=== PATIENT | male | born 1950 | race Caucasian/White ===

== ENCOUNTER → 2019-04-11 | Outpatient (CLI) | payer MEDICARE, OTHER ==
[~2019-04-11] MED LIST: ASPI81TA50 PO; CITA40TA5 PO; CRESTOR10 MG PO; DICL75TA PO; FISH1CAP PO; LISI-334 PO; METO25TA4 PO
--- NOTE | 2019-04-11 16:18 | RAD ---
EXAM: Lower extremity arterial Doppler sonogram with ankle-brachial indices (MARIO). HISTORY: Nonhealing wound. TECHNIQUE: Doppler sonographic evaluation of the lower extremities was performed and pressure readings were assessed. FINDINGS: There is atherosclerotic plaque throughout the left lower extremity arteries. There are triphasic waveforms within the left common femoral, superficial femoral and popliteal arteries and biphasic waveforms within the left deep femoral and dorsalis pedis arteries. There are abnormal monophasic waveforms within the posterior tibial artery and the peroneal artery is not seen. There are elevated peak systolic velocities within the common femoral artery and proximal superficial femoral artery, measuring 168 cm/s and 171 cm/s, respectively. Right brachial pressure: 130 mmHg Left brachial pressure: 131 mmHg Left ankle pressure (posterior tibial artery): 132 mmHg Left ankle pressure (dorsalis pedis artery): 129 mmHg Left MARIO: 1.0 IMPRESSION: 1. Nonvisualization of the left peroneal artery. This may be due to technique or occlusion. There are abnormal monophasic waveforms within the posterior tibial artery suggesting hemodynamically significant proximal stenosis. 2. Elevated peak systolic velocities within the common femoral and proximal superficial femoral artery, suggesting hemodynamically significant stenosis. 3. Atherosclerotic plaque throughout the left lower extremity arteries. 4. Normal left ankle-brachial index. Electronically signed by: Colleen Mulligan MD (04/11/2019 4:15 PM) [place] [id number]
--- NOTE | 2019-04-11 16:22 | RAD ---
EXAM: Left tibia and fibula, 2 views. HISTORY: Nonhealing ulcer. COMPARISON: None. FINDINGS: 2 views of the tibia and fibula are obtained. There is no fracture, dislocation or subluxation. There is no periosteal reaction or suspicious lytic or sclerotic osseous lesion. There is a soft tissue bandage overlying the anterior gonzales at the site of reported ulceration. There are vascular calcifications. IMPRESSION: No acute osseous finding. Electronically signed by: Colleen Mulligan MD (04/11/2019 4:19 PM) [place] [id number]
== END | disposition home or self-care (01) ==
LOC: US 14:39
PROVIDERS: ATTEND Emergency Medicine Undersea and Hyperbaric Medicine
DX: I70.248 Atherosclerosis of native arteries of left leg with ulceration of other part of lower leg (principal); L97.829 Non-pressure chronic ulcer of other part of left lower leg with unspecified severity
CPT/HCPCS: 73590; 93922; 93926

== ENCOUNTER 2019-04-21 07:59 | Outpatient (CLI) | payer MEDICARE, OTHER ==
[~2019-04-21] VITALS: Ht 190.5 cm; Wt 93.4 kg
[2019-04-21] VITALS (9 sets, daily range): BP systolic 138–161; BP diastolic 70–89
[2019-04-21] MEDS ORDERED: FISH1CAP PO (08:51)
[2019-04-21] MEDS ORDERED: HEPARIN for ARTERIAL LINE 1,500 ML ONE (08:51)
[2019-04-21] MEDS ORDERED: IODIXANOL 320 MG/ML 100 ML VIAL. ONE (08:51)
[2019-04-21] MEDS ORDERED: LIDOCAINE WITH 8.4% SOD BICARB 3 ML DISP.SYRIN. ONE (08:51)
[2019-04-21] MEDS ORDERED: DICL75TA PO (08:51)
[2019-04-21] MEDS ORDERED: CRESTOR10 MG PO (08:53)
[2019-04-21] MEDS ORDERED: METO25TA4 PO (08:53)
[2019-04-21] MEDS ORDERED: CITA40TA5 PO (08:53)
[2019-04-21] MEDS ORDERED: LISI-334 PO (08:53)
[2019-04-21] MEDS ORDERED: ASPI81TA50 PO (08:53)
[2019-04-21 08:56] LABS: BASO # 0.1 x10^3/uL (0.0-0.2); BASO % 1 % (0-3); EOS # 0.2 x10^3/uL (0.0-0.7); EOS % 3 % (0-3); HEMATOCRIT 38.3 % (39.0-53.0); HEMOGLOBIN 13.4 g/dL (13.0-17.5); LYMPH # 1.7 x10^3/uL (1.0-4.8); LYMPH % 28 % (24-48); MEAN CORPUSCULAR HEMOGLOBIN 36 pg (25-35); MEAN CORPUSCULAR HGB CONC 35 g/dL (31-37); MEAN CORPUSCULAR VOLUME 102 fL (79-100); MONO # 0.6 x10^3/uL (0.0-1.1); MONO % 9 % (0-9); NEUT # 3.5 x10^3/uL (1.8-7.7); NEUT % 58 % (31-73); PLATELET COUNT 155 x10^3/uL (140-400); RED BLOOD COUNT 3.75 x10^6/uL (4.30-5.70); RED CELL DISTRIBUTION WIDTH 13.4 % (11.5-14.5)
[2019-04-21 09:04] LABS: PROTHROMBIN TIME PATIENT 12.2 SEC (11.7-14.0)
[2019-04-21 09:05] LABS: CALCIUM 8.9 mg/dL (8.5-10.1); GFR 74.8; POTASSIUM 4.9 mmol/L (3.5-5.1)
[2019-04-21] MEDS ORDERED: MIDAZOLAM HCL/PF 5 MG/5 ML VIAL. ONE (09:22)
[2019-04-21] MEDS ORDERED: fentaNYL PF VIAL 100 MCG/2 ML VIAL ONE ×2 (09:23→10:36)
[2019-04-21] MEDS ORDERED: HEPARIN for IV BOLUS 10,000 UNIT/10 ML VIAL. ONE (09:23)
[2019-04-21] MEDS ORDERED: CONTRAST GIVEN. MC PRN (10:15)
[2019-04-21] MEDS ORDERED: MIDAZOLAM HCL/PF 5 MG/5 ML VIAL. IV ONE (10:15)
[2019-04-21] MEDS ORDERED: fentaNYL PF VIAL 100 MCG/2 ML VIAL IV ONE (10:15)
[2019-04-21] MEDS ORDERED: IODIXANOL 320 MG/ML 100 ML VIAL. IART ONE (10:15)
[2019-04-21] MEDS ORDERED: LIDOCAINE WITH 8.4% SOD BICARB 3 ML DISP.SYRIN. IJ ONE (10:15)
[2019-04-21] MEDS ORDERED: NITROGLYCERIN 200 MCG/2 ML SYRINGE FOR CATH/VASC LAB. IART ONE (10:45)
[2019-04-21] MEDS ORDERED: HEPARIN for IV BOLUS 10,000 UNIT/10 ML VIAL. IV ONE (10:45)
[2019-04-21] MEDS ORDERED: NITROGLYCERIN 200 MCG/2 ML SYRINGE FOR CATH/VASC LAB. ONE (14:20)
--- NOTE | 2019-04-21 15:50 | NUR ---
Discharge Note: KEZIA VILLEDA Discharge instructions and discharge home medications reviewed with Patient and a copy given. All questions have been answered and understanding verbalized. The following instructions and handouts were given: medication list, post mod sedation education, incision care instructions, post arteriogram instructions Discontinued lines and drains: dressing applied with pressure dressing intact. Patient discharged to home with brother via wheelchair
--- NOTE | 2019-04-24 08:17 | RAD ---
04/24/2019 6:10 AM Procedure: 1. Abdominal aortogram 2. Pelvic angiography 3. Left lower extremity angiography 4. Angioplasty of the anterior tibial artery Clinical Indication: LEFT LEG WOUND Discussion: The procedure was explained in its entirety to the patient or the patients designated patient access representative by a member of the treatment team, including a discussion of the risks, benefits and commonly accepted alternatives to the procedure, as well as the expected consequences of no therapy whatsoever. Discussion of the risks included, but was not limited to, those that are most frequent and those that are rare but possibly severe or life-threatening, as well as the possibility of unforeseen complications. All elements of maximal sterile barrier technique including the use of a cap, mask, sterile gown, sterile gloves, large sterile sheet, appropriate hand hygiene, and 2% chlorhexidine for cutaneous antisepsis (or acceptable alternative antiseptic per current guidelines) were followed for this procedure. The right groin was prepped and draped as described above. The right common femoral artery was found to be patent by ultrasound. Right common femoral artery was accessed under direct ultrasound guidance using micropuncture technique. A 5 Prydeinig vascular sheath was placed. Abdominal aortogram was performed. Pelvic angiography was performed. The catheter was repositioned in the left common femoral artery. Left lower extremity angiography was performed. There is significant diffuse atherosclerotic vascular disease. There is however no aortoiliac or significant femoropopliteal stenosis on the left. There is occlusion of the distal anterior tibial artery. The artery is overall small in caliber. With more dominant flow through the peroneal and posterior tibial artery. Given anterior gonzales wound, revascularization may benefit patient. A guidewire Wire was advanced into the distal dorsalis pedis artery. Balloon angioplasty of the anterior tibial artery was performed with a 2 mm balloon. This reestablished in-line flow to the dorsalis pedis artery. Artery remains small, but hopefully in-line flow will improve chances of wound healing. Sheath was removed. Mixed device was deployed to achieve hemostasis. Sterile dressings were applied. Dose area product: 381 Gycm2 Total fluoroscopy time 24.8 Minutes The procedures performed under conscious sedation including continuous cardiopulmonary monitoring via dedicated sedation nurse. Kiwn-mn-rggq sedation time: 130 minutes Impression: 1. Diffuse atherosclerotic vascular disease without hemodynamically significant aortoiliac or femoral peroneal stenosis 2. Two-vessel runoff to left foot via the posterior tibial and peroneal artery 3. 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
== END 2019-04-21 15:52 | disposition home or self-care (01) ==
LOC: INTRAD 07:59
PROVIDERS: ATTEND Emergency Medicine Undersea and Hyperbaric Medicine
DX: I70.92 Chronic total occlusion of artery of the extremities (principal); I70.202 Unspecified atherosclerosis of native arteries of extremities, left leg; I87.012 Postthrombotic syndrome with ulcer of left lower extremity; L97.223 Non-pressure chronic ulcer of left calf with necrosis of muscle
CPT/HCPCS: 36415; 37228; 75625; 75710; 76937; 80048; 85025; 85610; 99152; 99153; C1713; C1725; C1760; C1769; C1892; C1894; J1644; J2250; J3010; J3490; Q9967; G0269

== ENCOUNTER → 2019-05-30 | Outpatient (CLI) | payer MEDICARE, OTHER ==
[2019-04-21 14:05] VITALS: BP 150/70
--- NOTE | 2019-05-30 16:01 | RAD ---
EXAM: Left lower extremity venous reflux sonographic. HISTORY: Nonhealing wound. TECHNIQUE: Sonographic imaging of the left lower extremity veins was performed. COMPARISON: None. FINDINGS: There is no evidence of venous reflux within the left lower extremity. There is a catheter ditching machine operating engineer measuring 13 cm up and 5 cm back. The greater saphenous vein measures 8 mm within the proximal thigh, 4 mm within the distal thigh, 2 mm within the proximal calf, 3 mm within the mid calf and 3 mm within the distal calf. IMPRESSION: 1. No sonographic evidence of left lower extremity venous reflux. 2. Left calf ditching machine operating engineer vein. Electronically signed by: Colleen Mulligan MD (05/30/2019 3:58 PM) [facility]
== END | disposition home or self-care (01) ==
LOC: US 15:15
PROVIDERS: ATTEND Emergency Medicine Undersea and Hyperbaric Medicine
DX: L97.829 Non-pressure chronic ulcer of other part of left lower leg with unspecified severity (principal)
CPT/HCPCS: 93971

== ENCOUNTER → 2020-11-26 | Outpatient (CLI) | payer MEDICARE, OTHER ==
[2019-04-21 14:05] VITALS: BP 150/70
[~2020-11-26] MED LIST changes: +IOHEXOL 350 MG/ML 100 ML VIAL. IV ONE; -LISI-334 PO; +LISI20TA18 PO
[2020-11-26 13:22] LABS: CREATININE 1.1 mg/dL (0.7-1.3); GFR 66.6
--- NOTE | 2020-11-26 15:48 | RAD ---
EXAM: Abdomen and pelvis and bilateral lower extremity CT angiogram with intravenous contrast. HISTORY: Nonhealing left lower extremity venous ulcer. TECHNIQUE: Computed tomographic images of the abdomen and pelvis and lower extremities were obtained following the administration of intravenous contrast. Multiplanar reformatting was performed. *One or more of the following individualized dose reduction techniques were utilized for this examina tion: 1. Automated exposure control. 2. Adjustment of the mA and/or kV according to patient size. 3. Use of iterative reconstruction technique. COMPARISON: None. FINDINGS: Evaluation of the lower thorax demonstrates bilateral basilar atelectasis. There is no infi ltrate or pleural effusion. The heart is normal in size. There is calcified atherosclerotic plaque in volving the coronary arteries. No suspicious hepatic lesion is seen. The gallbladder, pancreas, splee n and adrenal glands are unremarkable. There are simple appearing left greater than right renal cysts , the largest of which measures 3.4 cm on the left. No solid renal lesion is seen. There is no hydron ephrosis. There is no appendicitis. There is no bowel obstruction. There is colonic diverticulosis. T here is slight wall thickening and minimal surrounding fatty stranding surrounding the distal colon l ikely due to the sequela of prior inflammation. There is no convincing acute diverticulitis. The blad inga is unremarkable. There are small fat-containing inguinal hernias. There are nonspecific retroperi toneal lymph nodes. These are likely physiologic. There are degenerative changes throughout the visua lized spine. There is grade 1 anterolisthesis with pars defects at L5-S1. There is avascular necrosis involving the bilateral superior femoral heads. There is complete loss of the right hip joint space with associated bony remodeling and cortical collapse involving the superior acetabulum and superior femoral head. There is superimposed bone demineralization and a right hip effusion. There is calcified atherosclerotic plaque involving the aorta and main aortic branch vessels. No aort ic aneurysm or dissection is seen. There is less than 50 percent stenosis involving the celiac axis a nd proximal right superior mesenteric artery. There is approximately 50 percent stenosis involving th e mid right superior mesenteric artery. There is less than 50 percent stenosis involving the origins of the renal arteries. The inferior mesenteric artery is patent. There is calcified atherosclerotic plaque involving the iliac bifurcation. This results in 50-69 perc ent stenosis involving the right greater than left external iliac arteries, near complete occlusion o f the origins of the internal iliac arteries and segments of greater than 70 percent stenosis involvi ng the mid and distal internal iliac arteries. There is dfrd-cf-ulopczei calcified atherosclerotic plaque involving the right common femoral and radha p femoral artery, with less than 50 percent stenosis. There is moderate atherosclerotic plaque involv ing the right superficial femoral artery, resulting in segments of 50-69 percent stenosis. There is s imilar-appearing atherosclerotic plaque involving the right popliteal artery with less than 50 percen t stenosis. There is severe atherosclerotic plaque involving the right anterior and posterior tibial and peroneal arteries. The right posterior tibial artery remains patent to the level of the forefoot. The right anterior tibial artery appears partially occluded within its proximal and mid aspects an o ccluded in its distal aspect. The peroneal artery terminates slightly proximal to the ankle. There is dbgk-oy-tbchtyaj calcified atherosclerotic plaque involving the left common femoral and deep femoral arteries with less than 50 percent stenosis. There is a similar-appearing moderate atheroscl erotic plaque involving the left superficial femoral artery the popliteal artery, with less than 20 p ercent stenosis. There is severe partially calcified atherosclerotic plaque involving the anterior an d posterior tibial and peroneal arteries. The left posterior tibial artery remains patent to the leve l of the forefoot. The left anterior tibial artery is nearly completely occluded, but remains patent to the level of the dorsalis pedis artery. The left peroneal artery terminates slightly proximal to t he ankle. IMPRESSION: 1. Mild to moderate atherosclerotic plaque involving the bilateral common femoral and deep femoral ar teries with less than 50 percent stenosis. There are similar-appearing tfrr-ps-gulpvnrm atherosclerot ic plaque involving the left superficial femoral and bilateral popliteal arteries with less than 50 p ercent stenosis and moderate atherosclerotic plaque involving the right superficial femoral artery re sulting in 50-69 percent stenosis. 2. Severe atherosclerotic plaque involving the bilateral anterior and posterior tibial arteries and p eroneal arteries. The bilateral posterior tibial arteries remain patent to the level of the forefeet, the peroneal arteries terminate solid proximal to the ankles, the right anterior tibial artery appea rs occluded distally and the left anterior tibial artery is partially occluded within its mid aspect but remains patent to the level of the dorsalis pedis artery. 3. Mild atherosclerotic plaque involving the aorta and abdominal aortic branch vessels, resulting in approximately 50 percent stenosis within the mid superior mesenteric artery and less than 50 percent stenosis involving the celiac axis and renal arteries. There is also atherosclerosis involving the il iac bifurcation resulting in approximately 50-79 percent stenosis of the right greater than left exte rnal iliac arteries and near complete occlusion at the origins of the internal iliac arteries. 4. Colonic diverticulosis. There is slight wall thickening and surrounding stranding involving the di stal colon which is likely due to the sequela of prior inflammation. There is no convincing acute col itis or diverticulitis. 5. Grade 1 anterolisthesis with pars defects at L5-S1. 6. 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 7. Simple appearing renal cysts. Follow-up is not routinely performed for simple cysts. Electronically signed by: Colleen Mulligan MD (11/26/2020 3:46 PM) [id number]
== END ==
LOC: CT 12:57
PROVIDERS: ATTEND Nurse Practitioner Family
DX: L97.929 Non-pressure chronic ulcer of unspecified part of left lower leg with unspecified severity (principal); I70.201 Unspecified atherosclerosis of native arteries of extremities, right leg; K57.30 Diverticulosis of large intestine without perforation or abscess without bleeding; M43.17 Spondylolisthesis, lumbosacral region
CPT/HCPCS: 36415; 75635; 82565; Q9967

== ENCOUNTER → 2021-02-13 | Outpatient (CLI) | payer MEDICARE, OTHER ==
[2019-04-21 14:05] VITALS: BP 150/70
[~2021-02-13] MED LIST changes: -IOHEXOL 350 MG/ML 100 ML VIAL. IV ONE; +REGADENOSON 0.4 MG/5 ML DISP.SYRIN. IV ONE
--- NOTE | 2021-02-13 18:32 | CARD ---
MR#: [id number] Date of Study: 02/13/2021 Ordering Physician: MARIANGEL BOWEN, Referring Physician: MARIANGEL BOWEN, Tech: Petrona Henderson, [facility] [place] APPROVED REPORT EXAM: Two-dimensional and M-mode echocardiogram with Doppler and color Doppler. Other Information Quality : AverageHR: 85bpm INDICATION Cardiac Disease: CAD 2D DIMENSIONS RVDd3.3 (2.9-3.5cm)Left Atrium(2D)3.2 (1.6-4.0cm) IVSd1.1 (0.7-1.1cm)Aortic Root(2D)3.5 (2.0-3.7cm) LVDd5.2 (3.9-5.9cm)LVOT Diameter2.1 (1.8-2.4cm) PWd1.1 (0.7-1.1cm)LVDs3.3 (2.5-4.0cm) FS (%) 36.6 %SV84.4 ml Aortic Valve AoV Peak Gunner.174.4cm/sAoV VTI33.1cm AO Peak GR.12.2mmHgLVOT Peak Gunner.144.2cm/s LVOT VTI 28.52cmAO Mean GR.7mmHg HANNAH (VMAX)2.42zx1QXC (VTI)3.09cm2 Mitral Valve MV E Gsubnjea24.6cm/sMV DECEL TQCL728lw MV A Tpceqvhk79.1cm/sMV E Mean Gr.2mmHg MV YRZ87dtL/A Ratio1.0 MVA (PHT)3.17cm2 TDI E/Medial E'7.8 Pulmonary Valve PV Peak Fcjcnnnr13.3cm/sPV Peak Grad.4mmHg Tricuspid Valve TR P. Fhcbvdcb132ai/sTR Peak Gr.17mmHg Pulmonary Vein S1 Jgwkxstz04.8cm/sD2 Tmdlsdak53.5cm/s PVa gwkvnzvh298ppay LEFT VENTRICLE The left ventricle is normal size. There is mild concentric left ventricular hypertrophy. The left ve ntricular systolic function is normal and the ejection fraction is within normal range. The Ejection Fraction is 60-65%. There is normal LV segmental wall motion. Transmitral Doppler flow pattern is Gra de II-pseudonormal filling dynamics. RIGHT VENTRICLE The right ventricle is mildly dilated. There is normal right ventricular wall thickness. The right ve ntricular systolic function is normal. ATRIA The left atrium size is normal. The right atrium size is normal. The interatrial septum is intact wit h no evidence for an atrial septal defect or patent foramen ovale as noted on 2-D or Doppler imaging. AORTIC VALVE The aortic valve is thickened but opens well. Doppler and Color Flow revealed no significant aortic r egurgitation. There is no significant aortic valvular stenosis. Calculated aortic valve area is 3.26 cm2 with maximum pressure gradient of 14 mmHg and mean pressure gradient of 8 mmHg. MITRAL VALVE The mitral valve is normal in structure and function. There is no evidence of mitral valve prolapse. There is no mitral valve stenosis. Doppler and Color-flow revealed trace mitral regurgitation. TRICUSPID VALVE The tricuspid valve is normal in structure and function. Doppler and Color Flow revealed trace tricus pid regurgitation with an estimated PAP of 19 mmHg. There is no tricuspid valve stenosis. PULMONIC VALVE The pulmonic valve is not well visualized. Doppler and Color Flow revealed trace pulmonic valvular re gurgitation. GREAT VESSELS The aortic root is normal in size. The IVC is normal in size and collapses >50% with inspiration. PERICARDIAL EFFUSION There is no evidence of significant pericardial effusion. Critical Notification Critical Value: No <Conclusion> The left ventricle is normal size. The left ventricular systolic function is normal and the ejection fraction is within normal range. The Ejection Fraction is 60-65%. There is normal LV segmental wall motion. There is mild concentric left ventricular hypertrophy. Doppler and Color Flow revealed no significant aortic regurgitation. There is no significant aortic valvular stenosis. Doppler and Color-flow revealed trace mitral regurgitation. Doppler and Color Flow revealed trace tricuspid regurgitation with an estimated PAP of 19 mmHg. Signed by : Yariel Vann MD Electronically Approved : 02/13/2021 18:31:37
--- NOTE | 2021-02-13 19:00 | RAD ---
MR#: [id number] Date of Study: 02/13/2021 Ordering Physician: MARIANGEL BOWEN, Referring Physician: DENISE MARCUS Tech: Minh Sullivan, RT (R) (N)JOE Sandoval APPROVED REPORT Test Type: Pharmacological Stress Nurse/Tech: Santiago Wiley RN Test Indications: CAD Cardiac History: CAD, Cardiac Cath w/ 5 stents placed in 2014, HTN, See EMR. Medications: ASA, See EMR. Medical History: Current Smoker, COPD,See EMR. Resting ECG: SR Resting Heart Rate: 74 bpm Resting Blood Pressure: 143/72mmHg Pretest Chest Pain: No chest pain Nurse/Tech Notes Lungs wheezy and diminshed through out, Heart tones regular. Pt sating 91% on RA prior to test; durin g stress O2 sat dropped to 89% on RA. Pt was recovered to 91% by the end of stress. Consent: The procedure was explained to the patient in lay terms. Informed consent was witnessed. Jonel eout was entered into [employer]. History and Stress Test performed by JOE Sandoval Pharm. Details Pharmacologic stress testing was performed using 0.4mg per 5ml of regadenoson given intravenously ove r 7-10 seconds. Stress Symptoms Dyspnea POST EXERCISE Reason for Termination: Infusion complete Max HR: 86 bpm Max Blood Pressure: 159/60mmHg Blood Pressure response to exercise: Normal blood pressure response during stress. Heart Rate response to exercise: WNL Chest Pain: No. Arrhythmia: No. ST Change: No. INTERPRETATION Stress EKG Conclusion: The resting EKG shows a sinus rhythm with minimal nonspecific ST-T wave change s. The stress EKG showed no significant changes from baseline. No EKG evidence of stress-induced ischemia. Imaging Protocol IMAGE PROTOCOL: Rest Tc-99m/stress Tc-99m 1 day Rest: Stress: Viability: Radiopharm.Tc99m UqcyeubjxDh32h Sestamibi Dose10.5mCi 33mCi Duration 15min. 10min. Img Date 02/13/2021 02/13/2021 Inj-Img Iick83fhi. 60min. Rest Admin Site:IV - Right AntecubitalAdministrator:Minh Sullivan, RT (R)(N) Stress Admin Site: IV - Right AntecubitalAdministrator: JOE Sandoval STRESS DATA End Diast. Vol.103.0mlAv. Heart Rate89.0bpm End Syst. Vol.23.0mlCO Index BSA0.0L/min Myocardial Kuuv119.0gEject. Ixsplnhr41.0% Stress Rates Pk. Fill Rate3.80EDV/secLVtime Pk. Fill 190.99msec Pk. Empty Rate6.01ESV/secLVtime Pk. Mejwx673.49msec 07/14 Pk. Fill1.54EDV/sec Stress Scores Regional WT0.00Summed WT0.00 Regional WM0.00Summed WM0.00 LV Perfusion The stress scans show an inferior defect. The rest scans show a more prominent inferior defect. Nuclear imaging shows a fixed inferior wall defect. There is no reversible ischemia present. This is consistent with a prior inferior infarct or possible attenuation defect. Wall Motion Left ventricular systolic function is normal with no regional wall motion abnormalities and an ejecti on fraction of greater than 70%. LV Perf. Quant 17 Seg. SSS10.00 17 Seg. SRS18.00 17 Seg. SDS1.00 Stress Defect Extent (% LAD)0.00Rest Defect Extent (% LAD)18.80Rev. Defect Extent (% LAD)0.00 Stress Defect Extent (% LCX) 26.30Rest Defect Extent (% LCX)51.30Rev. Defect Extent (% LCX)0.00 Stress Defect Extent (% RCA)46.70Rest Defect Extent (% RCA)55.60Rev. Defect Extent (% RCA)0.00 Stress Defect Extent (% RICHMOND)18.50Rest Defect Extent (% RICHMOND)38.00Rev. Defect Extent (% RICHMOND)0.00 Conclusion 1. No EKG evidence of stress-induced ischemia. 2. Nuclear imaging shows no reversible ischemia. 3. Left ventricular systolic function is normal with no clear regional wall motion abnormalities and an ejection fraction of greater than 70%. 4. Fixed inferior wall defect with normal LV function most consistent with a probable attenuation def ect although an inferior infarct cannot be entirely excluded. 5. Moderately low risk nuclear stress test. Signed by : Yariel Vann MD Electronically Approved : 02/13/2021 19:00:21
== END ==
LOC: NM 09:56
PROVIDERS: ATTEND Internal Medicine Cardiovascular Disease
DX: I25.10 Atherosclerotic heart disease of native coronary artery without angina pectoris (principal); I51.7 Cardiomegaly; R06.00 Dyspnea, unspecified; I10 Essential (primary) hypertension; F17.200 Nicotine dependence, unspecified, uncomplicated; J44.9 Chronic obstructive pulmonary disease, unspecified; Z95.818 Presence of other cardiac implants and grafts
CPT/HCPCS: 78452; 93017; 93306; 93970; A9500; J2785

== ENCOUNTER → 2021-03-10 | Outpatient (CLI) | payer MEDICARE, OTHER ==
[2021-03-10] VITALS (21 sets, daily range): BP systolic 117–160; BP diastolic 61–85
[~2021-03-10] VITALS: Ht 190.5 cm; Wt 90.0 kg
[~2021-03-10] MED LIST changes: +CONTRAST GIVEN. MC PRN; +FAMOTIDINE 20 MG/2 ML VIAL IVP ONE; +FAMOTIDINE 20 MG/2 ML VIAL ONE; +HEPARIN for IV BOLUS 10,000 UNIT/10 ML VIAL. IART ONE; +HEPARIN for IV BOLUS 10,000 UNIT/10 ML VIAL. ONE; +IODIXANOL 320 MG/ML 100 ML VIAL. IART ONE; +IODIXANOL 320 MG/ML 100 ML VIAL. ONE; +IV 1/2 NORMAL SALINE 1,000 ML IV SCH; +LIDOCAINE 1% PF 2 ML VIAL. INJ ONE; +LIDOCAINE 1% PF 2 ML VIAL. ONE; +MIDAZOLAM HCL/PF 2 MG/2 ML VIAL. IV ONE; +MIDAZOLAM HCL/PF 2 MG/2 ML VIAL. ONE; +NITROGLYCERIN 200 MCG/2 ML SYRINGE FOR CATH/VASC LAB. IART ONE; +NITROGLYCERIN 200 MCG/2 ML SYRINGE FOR CATH/VASC LAB. ONE; -REGADENOSON 0.4 MG/5 ML DISP.SYRIN. IV ONE; +UMEC62.5 IH; +VERAPAMIL 5 MG/2 ML VIAL. IART ONE; +VERAPAMIL 5 MG/2 ML VIAL. ONE; +diphenhydrAMINE 50 MG/ML VIAL IVP ONE; +diphenhydrAMINE 50 MG/ML VIAL ONE; +fentaNYL PF VIAL 100 MCG/2 ML VIAL IV ONE; +fentaNYL PF VIAL 100 MCG/2 ML VIAL ONE; +methylPREDNISolone SOD SUCC PF 125 MG/2 ML VIAL. IV ONE; +methylPREDNISolone SOD SUCC PF 125 MG/2 ML VIAL. ONE
[2021-03-10 08:56] LABS: HEMATOCRIT 41.6 % (39.0-53.0); HEMOGLOBIN 14.3 g/dL (13.0-17.5); RED BLOOD COUNT 4.07 x10^6/uL (4.30-5.70); RED CELL DISTRIBUTION WIDTH 13.8 % (11.5-14.5); WHITE BLOOD COUNT 6.4 x10^3/uL (4.0-11.0)
[2021-03-10 09:17] LABS: CALCIUM 9.3 mg/dL (8.5-10.1); GFR 74.3; POTASSIUM 3.9 mmol/L (3.5-5.1)
--- NOTE | 2021-03-10 12:08 | CARD ---
MR#: [id number] Date of Study: 03/10/2021 Ordering Physician: MARIANGEL RAMOS, Referring Physician: MARIANGEL RAMOS, Tech: RT Pradeep(R) APPROVED REPORT Patient StatusOUT-PATIENT Neck Skewer: RT Pradeep(R) Procedure(s) performed: Aortogram with bilateral lower extremity runoff via right transradial approac h Sedation Time: 48 Minutes Dose: 69Fjtk6 Contrast: 101 mL Visipaque 320 Fluoro Time: 8.7 minutes INDICATION FOR PROCEDURE The indication(s) include : Peripheral artery disease with claudication and nonhealing wound left leg . CASE TECHNIQUE After explaining the risks, benefits, and alternative options, informed consent was obtained from the patient. IV conscious sedation was used throughout procedure with appropriate monitoring and was per formed in the presence of a registered nurse who was an independent trained observer other than the miko baxter performing the procedure. During this case, Fluoroscopy and low osmolar contrast were used f or imaging. Specimen(s) Removed: No Estimated Blood loss: 15 cc's. PROCEDURE NARRATIVE After explaining the risk, benefits and alternative options, informed consent was obtained for patien t. Patient was brought to the cardiac Liability Claims Examiner and his right wrist was prepped and draped in the usu al fashion after confirming a positive modified Adrian's test. Arterial access was obtained in the [facility] radial artery and a 6 Tajik sheath was inserted. A 6 Tajik R2 P PV multicurve catheter was the n advanced under fluoroscopic guidance and with the tip positioned in the distal descending aorta, ao rto iliac angiography was performed. The tip was advanced to the left common iliac artery and select rito left lower extremity angiography was performed. Subsequently, this catheter was advanced into th e right common iliac artery and selective right lower extremity angiography was performed. Patient t olerated the procedure well. Hemostasis was achieved using TR band. There were no immediate complic ations. FINDINGS 1. No significant stenosis involving the distal descending aorta 2. No significant stenosis involving bilateral common and external iliac arteries 3. No significant stenosis involving bilateral common femoral arteries 4. The right superficial femoral artery showed heavily calcified 80% stenosis in the midsegment and another 80% stenosis in the distal segment. The left superficial femoral artery showed heavily calci fied 70 to 80% stenosis involving the mid to distal segment. 5. No significant stenosis involving bilateral popliteal arteries. 6. There is two vessel runoff below the knee bilaterally via peroneal and posterior tibial arteries. The right anterior tibial artery showed chronic total occlusion proximally. The left anterior tibi al artery showed severe diffuse disease in the proximal to mid segment followed by chronic total occl usion. Conclusion Bilateral lower extremity peripheral artery disease with significant heavily calcified lesions involv ing bilateral superficial femoral arteries Recommendations Plan for orbital atherectomy/CONSULTING UTILITY FORESTER to bilateral superficial femoral arteries in 2 weeks. Signed by : Mariangel Ramos, Electronically Approved : 03/10/2021 12:08:16
--- NOTE | 2021-03-10 12:10 | PDOC ---
MODERATE SEDATION ASSESSMENT RISKS/ALTERNATIVES Risks/Alternatives Risks and alternatives of this type of sedation and procedure discussed with: RISK/ALTERNATIVES: Patient H & P ON CHART H & P H & P on chart and reviewed for co-morbid conditions and appropriate labs. H&P ON CHART: Yes STATUS PREG STATUS ASSESSED: N/A MEDS/ALLERGIES REVIEWED Meds/Allergies Reviewed Medications and Allergies including time and route of recently administered narcotics and sedatives. MEDS/ALLERGIES REVIEWED: Yes ASA RATING ASA RATING: II AIRWAY ASSESSMENT Airway Assessment Airway patency, oral function limitations, presence of caps, crowns, dentures, partials, and ability to extend neck assessed. AIRWAY ASSESSMENT: Yes MALLAMPATI SCORE MALLAMPATI SCORE: II PRE-SEDATION ASSESSMENT PRE-SEDATION ASSESSMENT: Yes MARIANGEL BOWEN MD Mar 10, 2021 12:10
--- NOTE | 2021-03-10 12:43 | NUR ---
Attempted to remove 2cc of are from right radial TR band. Pt started to immediately bleed. 2cc replaced; and hemostasis reachieved. Will wait 30min; and retry air removal.
--- NOTE | 2021-03-10 13:51 | NUR ---
Attempted again to remove first 2cc of air at 1305; and patient immediately started to bleed. 4cc of air replaced and hemostasis achieved. Dwayne Daugherty looked at site, and stated that the TR band was in fine position. At 1350; Woody Lopez RN tried to remove 2cc of air again. Pt immediately started to bleed; and 3cc of air replaced, and TR band repositioned per Woody Lopez RN. Hemostasis achieved. Pt currently has 15cc of air in TR band.
--- NOTE | 2021-03-10 15:57 | NUR ---
Attempted air removal at 1435. Pt immediately bleed. 4cc of air returned to TR band. [place] and TR band Rep came to patient's bedside and readjusted the TR band. Hemostasis achieved, and air safely removed 2cc at a time. At 1552 all air was removed. At current time no bleeding is noted.
--- NOTE | 2021-03-10 16:52 | NUR ---
Pt A&O x4. rt wrist site with no bleeding. removed tr band, cleaned site, applied dry dressing. no bleeding noted. VSS. tolerating po well. ambulated to BR w/o problem. d/c instructions given , questions answered. out to vehicle per w/c
== END | disposition home or self-care (01) ==
LOC: CCL 08:11
PROVIDERS: ATTEND Internal Medicine Cardiovascular Disease
DX: I73.9 Peripheral vascular disease, unspecified (principal); I25.10 Atherosclerotic heart disease of native coronary artery without angina pectoris; I10 Essential (primary) hypertension; E78.00 Pure hypercholesterolemia, unspecified; J44.9 Chronic obstructive pulmonary disease, unspecified; F41.9 Anxiety disorder, unspecified; F32.9 Major depressive disorder, single episode, unspecified; F17.210 Nicotine dependence, cigarettes, uncomplicated; Z79.82 Long term (current) use of aspirin; Z79.899 Other long term (current) drug therapy; Z98.890 Other specified postprocedural states
CPT/HCPCS: 36415; 75630; 75716; 80048; 85027; 99152; 99153; C1769; C1894; J1200; J1644; J2250; J2930; J3010; J3490; Q9967; 75625

== ENCOUNTER 2021-03-31 07:18 | Day surgery (SDC) | payer MEDICARE, OTHER ==
[2021-03-31] VITALS (13 sets, daily range): BP systolic 109–174; BP diastolic 50–94
[~2021-03-31] VITALS: Ht 190.5 cm; Wt 90.0 kg
[~2021-03-31 07:18] MED LIST changes: -CONTRAST GIVEN. MC PRN; -FAMOTIDINE 20 MG/2 ML VIAL IVP ONE; -FAMOTIDINE 20 MG/2 ML VIAL ONE; -HEPARIN for IV BOLUS 10,000 UNIT/10 ML VIAL. IART ONE; -HEPARIN for IV BOLUS 10,000 UNIT/10 ML VIAL. ONE; -IODIXANOL 320 MG/ML 100 ML VIAL. IART ONE; -IODIXANOL 320 MG/ML 100 ML VIAL. ONE; -IV 1/2 NORMAL SALINE 1,000 ML IV SCH; +IV RINGERS,LACTATED 1000ML 1,000 ML IV SCH; -LIDOCAINE 1% PF 2 ML VIAL. INJ ONE; -LIDOCAINE 1% PF 2 ML VIAL. ONE; -MIDAZOLAM HCL/PF 2 MG/2 ML VIAL. IV ONE; -MIDAZOLAM HCL/PF 2 MG/2 ML VIAL. ONE; -NITROGLYCERIN 200 MCG/2 ML SYRINGE FOR CATH/VASC LAB. IART ONE; -NITROGLYCERIN 200 MCG/2 ML SYRINGE FOR CATH/VASC LAB. ONE; -VERAPAMIL 5 MG/2 ML VIAL. IART ONE; -VERAPAMIL 5 MG/2 ML VIAL. ONE; -diphenhydrAMINE 50 MG/ML VIAL IVP ONE; -diphenhydrAMINE 50 MG/ML VIAL ONE; -fentaNYL PF VIAL 100 MCG/2 ML VIAL IV ONE; -fentaNYL PF VIAL 100 MCG/2 ML VIAL ONE; -methylPREDNISolone SOD SUCC PF 125 MG/2 ML VIAL. IV ONE; -methylPREDNISolone SOD SUCC PF 125 MG/2 ML VIAL. ONE
[2021-03-31] MEDS ORDERED: LIDOCAINE 1% PF 2 ML VIAL. ONE (07:36)
[2021-03-31] MEDS ORDERED: IODIXANOL 320 MG/ML 100 ML VIAL. ONE (07:36)
[2021-03-31] MEDS ORDERED: PROPOFOL 50 ML IV ONE ×3 (07:45→09:44)
[2021-03-31] MEDS ORDERED: PROPOFOL 10 MG/ML (20ML) VIAL. IV ONE ×2 (07:45→07:46)
[2021-03-31] MEDS ORDERED: LIDOCAINE 2% PF 5 ML VIAL. ONE (07:45)
[2021-03-31] MEDS ORDERED: KETAMINE HCL IN NACL, ISO-OSM 50 MG/5 ML SYRINGE ONE ×2 (07:45→08:57)
[2021-03-31] MEDS ORDERED: NITROGLYCERIN 200 MCG/2 ML SYRINGE FOR CATH/VASC LAB. ONE (07:57)
[2021-03-31] MEDS ORDERED: methylPREDNISolone SOD SUCC PF 125 MG/2 ML VIAL. ONE (08:02)
[2021-03-31] MEDS ORDERED: FAMOTIDINE 20 MG/2 ML VIAL ONE (08:02)
[2021-03-31] MEDS ORDERED: diphenhydrAMINE 50 MG/ML VIAL ONE (08:03)
[2021-03-31] MEDS ORDERED: VERAPAMIL 5 MG/2 ML VIAL. ONE (08:12)
[2021-03-31] MEDS ORDERED: HEPARIN for IV BOLUS 10,000 UNIT/10 ML VIAL. ONE (08:12)
[2021-03-31] MEDS ORDERED: VERAPAMIL 5 MG/2 ML VIAL. IART ONE (08:30)
[2021-03-31] MEDS ORDERED: IODIXANOL 320 MG/ML 100 ML VIAL. IART ONE (08:30)
[2021-03-31] MEDS ORDERED: FAMOTIDINE 20 MG/2 ML VIAL IVP ONE (08:30)
[2021-03-31] MEDS ORDERED: NITROGLYCERIN 200 MCG/2 ML SYRINGE FOR CATH/VASC LAB. IART ONE (08:30)
[2021-03-31] MEDS ORDERED: LIDOCAINE 1% PF 2 ML VIAL. INJ ONE (08:30)
[2021-03-31] MEDS ORDERED: HEPARIN for IV BOLUS 10,000 UNIT/10 ML VIAL. IART ONE (08:30)
[2021-03-31] MEDS ORDERED: diphenhydrAMINE 50 MG/ML VIAL IVP ONE (08:30)
[2021-03-31] MEDS ORDERED: methylPREDNISolone SOD SUCC PF 125 MG/2 ML VIAL. IV ONE (08:30)
[2021-03-31] MEDS ORDERED: CONTRAST GIVEN. MC PRN (08:45)
--- NOTE | 2021-03-31 10:15 | PDOC ---
MODERATE SEDATION ASSESSMENT RISKS/ALTERNATIVES Risks/Alternatives Risks and alternatives of this type of sedation and procedure discussed with: RISK/ALTERNATIVES: Patient H & P ON CHART H & P H & P on chart and reviewed for co-morbid conditions and appropriate labs. H&P ON CHART: Yes STATUS PREG STATUS ASSESSED: N/A MEDS/ALLERGIES REVIEWED Meds/Allergies Reviewed Medications and Allergies including time and route of recently administered narcotics and sedatives. MEDS/ALLERGIES REVIEWED: Yes ASA RATING ASA RATING: II AIRWAY ASSESSMENT Airway Assessment Airway patency, oral function limitations, presence of caps, crowns, dentures, partials, and ability to extend neck assessed. AIRWAY ASSESSMENT: Yes MALLAMPATI SCORE MALLAMPATI SCORE: II PRE-SEDATION ASSESSMENT PRE-SEDATION ASSESSMENT: Yes MARIANGEL BOWEN MD Mar 31, 2021 10:15
[2021-03-31] MEDS ORDERED: ACETAMINOPHEN 325 MG TABLET. PO PRN (10:30)
[2021-03-31] MEDS ORDERED: IV 1/2 NORMAL SALINE 1,000 ML IV SCH (10:30)
--- NOTE | 2021-03-31 10:47 | CARD ---
MR#: [id number] Date of Study: 03/31/2021 Ordering Physician: MARIANGEL RAMOS, Referring Physician: MARIANGEL RAMOS, Tech: Nathaly Bhatt RT(R) APPROVED REPORT Patient StatusOUT-PATIENT Sr. Manager [employer]: Nathaly Bhatt RT(R) Procedure(s) performed: Successful orbital atherectomy/PATTERNMAKER HAND to bilateral superficial femoral arteries via right transradial approach SEDATION ADMINISTERED BY ANESTHESIA FLUORO TIME: 32.6 MIN DOSE: 25.4 GYCM2 CONTRAST: 70CC VISI INDICATION FOR PROCEDURE The indication(s) include : 70-year-old male with peripheral artery disease with claudication recentl y underwent aortogram with runoff and was found to have significant stenosis involving bilateral supe rficial femoral arteries. He presented today for orbital atherectomy/PATTERNMAKER HAND.. CASE TECHNIQUE After explaining the risks, benefits, and alternative options, informed consent was obtained from the patient. IV conscious sedation was used throughout procedure with appropriate monitoring and was per formed in the presence of a registered nurse who was an independent trained observer other than the miko baxter performing the procedure. During this case, Fluoroscopy and low osmolar contrast were used f or imaging. Specimen(s) Removed: No Estimated Blood loss: 15 cc's. PROCEDURE NARRATIVE After explaining the risk, benefits and alternative options, informed consent was obtained from patie nt. Patient was brought to the cardiac [employer] Coord[employer] and his right wrist was prepped and draped in the us ual fashion. Arterial access was obtained in the right radial artery and a 6 [place] sheath was inser jinny. 6 [place] pigtail catheter was used to navigate the aortic arch and this was then changed over a 0.035 inch guidewire to 6 [place] R2P destination sheath. This was advanced into the left external i liac artery. Selective angiography confirmed the previously described calcified 70 to 80% stenosis i nvolving the distal segment of the left superficial femoral artery. This was crossed with a Viper wi re. Multiple orbital atherectomy passes were then performed using CSI diamondback 1.75 atherectomy c atheter. The lesion was then dilated with a 5.0 x 100 mm Prolifiq Software[employer] R2 P crosstella balloon at 16 cara pr essure to achieve 5.57 lumen. Follow-up angiography showed resolution of the lesion with good distal flow. Subsequently, a Viper cath was advanced into the right superficial femoral artery and selective angio graphy was performed that confirmed the previously described heavily calcified 80% stenosis involving the distal segment of right superficial femoral artery. The destination sheath was advanced over th e Viper cath and the tip was positioned in the proximal segment of the right SFA. The lesion in the distal segment was crossed with the Viper wire and multiple orbital atherectomy with passes were perf ormed with the same 1.75 CSI atherectomy catheter. This was then dilated with the 5.0 balloon at 16 cara to achieve 5.57 lumen. Follow-up angiography showed resolution of the stenosis with good distal flow. Patient tolerated the procedure well. Hemostasis was achieved using TR band. There were no i mmediate complications. Conclusion Successful orbital atherectomy/PATTERNMAKER HAND to bilateral superficial femoral arteries Signed by : Mariangel Ramos, Electronically Approved : 03/31/2021 10:47:13
== END 2021-03-31 16:20 | disposition home or self-care (01) ==
LOC: SURG 07:18
PROVIDERS: ATTEND Internal Medicine Cardiovascular Disease
DX: I70.213 Atherosclerosis of native arteries of extremities with intermittent claudication, bilateral legs (principal); I10 Essential (primary) hypertension; E78.00 Pure hypercholesterolemia, unspecified; I25.2 Old myocardial infarction; I25.10 Atherosclerotic heart disease of native coronary artery without angina pectoris; J44.9 Chronic obstructive pulmonary disease, unspecified; F41.9 Anxiety disorder, unspecified; F32.9 Major depressive disorder, single episode, unspecified; F17.210 Nicotine dependence, cigarettes, uncomplicated; Z95.5 Presence of coronary angioplasty implant and graft; Z98.890 Other specified postprocedural states
CPT/HCPCS: 37225; 99152; 99153; C1724; C1725; C1769; C1887; C1894; J1200; J1644; J2704; J2930; J3490; Q9967

== ENCOUNTER → 2021-05-13 | Outpatient (CLI) | payer MEDICARE, OTHER ==
[2021-03-31 15:28] VITALS: BP 151/82
[~2021-05-13] MED LIST changes: -CITA40TA5 PO; +CITA40TA6 PO; -IV RINGERS,LACTATED 1000ML 1,000 ML IV SCH
--- NOTE | 2021-05-13 17:40 | RAD ---
EXAM: XR HIP (WITH OR WITHOUT PELVIS) RIGHT 1 VIEW 05/13/2021 2:11 PM CLINICAL INDICATION: Pain COMPARISON: CTA aorta with runoff 11/26/2020 TECHNIQUE: AP view of the pelvis and frog-leg lateral view of the right hip FINDINGS: There is chronic deformity of the right femoral head and complete joint space loss, bone-o n-bone articulation, subchondral cysts and sclerosis in the right hip. There is chronic remodeling of the acetabulum and superolateral migration of the femoral head in the acetabulum. There is a sclerot ic band in the femoral head, which may be related to AVN and collapse of the femoral head. No definit e acute fracture. The left hip, pubic symphysis, sacroiliac joints, and lumbar spine are unremarkable . There are extensive vascular calcifications noted. IMPRESSION: Unchanged severe degenerative joint disease at the right hip with chronic appearing defo rmity of the femoral head, likely sequela of AVN with collapse. Electronically signed by: Bekah Ruffin MD (05/13/2021 5:38 PM) [id number]
== END ==
LOC: RAD 13:55
PROVIDERS: ATTEND Family Medicine
DX: M16.11 Unilateral primary osteoarthritis, right hip (principal); M21.851 Other specified acquired deformities of right thigh; M25.851 Other specified joint disorders, right hip
CPT/HCPCS: 73501

== ENCOUNTER → 2021-06-09 | Outpatient (CLI) | payer MEDICARE, OTHER ==
[2021-03-31 15:28] VITALS: BP 151/82
[~2021-06-09] MED LIST changes: +TRAM50TA PO
[2021-06-09 09:34] LABS: BASO # 0.1 x10^3/uL (0.0-0.2); BASO % 1 % (0-3); EOS # 0.2 x10^3/uL (0.0-0.7); EOS % 3 % (0-3); HEMATOCRIT 42.4 % (39.0-53.0); LYMPH # 1.8 x10^3/uL (1.0-4.8); LYMPH % 27 % (24-48); MEAN CORPUSCULAR HEMOGLOBIN 33 pg (25-35); MEAN CORPUSCULAR HGB CONC 33 g/dL (31-37); MEAN CORPUSCULAR VOLUME 101 fL (79-100); MONO # 0.7 x10^3/uL (0.0-1.1); MONO % 10 % (0-9); NEUT % 59 % (31-73); PLATELET COUNT 254 x10^3/uL (140-400); RED BLOOD COUNT 4.21 x10^6/uL (4.30-5.70); RED CELL DISTRIBUTION WIDTH 13.2 % (11.5-14.5); WHITE BLOOD COUNT 6.8 x10^3/uL (4.0-11.0)
[2021-06-09 09:48] LABS: CREATININE 1.2 mg/dL (0.7-1.3); GFR 60.2; POTASSIUM 5.2 mmol/L (3.5-5.1)
[2021-06-09 10:06] LABS: PROTHROMBIN TIME PATIENT 12.4 SEC (11.7-14.0)
--- NOTE | 2021-06-09 13:26 | RAD ---
EXAMINATION: XR CHEST 2V CLINICAL HISTORY: Preoperative clearance, hypertension EXAM DATE/TIME: 06/09/2021 12:19 PM COMPARISON: None FINDINGS: Lines, Tubes, and Devices: None. Cardiomediastinal Silhouette: Normal heart size. Aortic atherosclerotic calcification. Lungs and Pleura: No evidence of focal airspace consolidation or pleural effusion. Pulmonary vasculat ure unremarkable. Bones and Soft Tissues: Degenerative changes in the thoracic spine. IMPRESSION: No evidence of acute cardiopulmonary abnormality. Electronically signed by: Ricardo Beltrán DO (06/09/2021 1:24 PM) [id number]
[2021-06-10 01:09] LABS: HEMOGLOBIN A1C 6.3 % (4.8-5.6)
== END ==
LOC: SURGPAT 11:56
PROVIDERS: ATTEND Orthopaedic Surgery
DX: Z01.818 Encounter for other preprocedural examination (principal); M87.9 Osteonecrosis, unspecified; I70.0 Atherosclerosis of aorta; M47.814 Spondylosis without myelopathy or radiculopathy, thoracic region
CPT/HCPCS: 36415; 71046; 80048; 82040; 82306; 83036; 85025; 85610; 85651; 85730; 87641

== ENCOUNTER → 2021-06-30 | Day surgery (SDC) | payer MEDICARE, OTHER ==
[2021-06-25 14:10] VITALS: BP 119/53
[~2021-06-30] VITALS: Ht 190.5 cm; Wt 88.6 kg
[~2021-06-30] MED LIST changes: +ACETAMINOPHEN 500 MG TABLET PO PRN; +DEXAMETHASONE SOD PHOS 4 MG/ML VIAL ONE; +GABAPENTIN 300 MG CAPSULE. PO PRN; +HYDROmorphone 2 MG/ML VIAL IVP PRN; +IPRATRPIUM/ALBUTEROL 0.5/2.5MG 3 ML NEBU. NEB ONE; +IV RINGERS,LACTATED 1000ML 1,000 ML IV SCH; +LIDOCAINE 1% PF 5 ML VIAL. ONE; +MELOXICAM 7.5 MG TABLET PO PRN; +MORPHINE SULFATE 2 MG/ML INJ. IVP PRN; +ONDANSETRON PF 4 MG/2 ML VIAL. ONE; +PROCHLORPERAZINE 10 MG/2 ML VIAL. IVP PRN; +PROPOFOL 10 MG/ML (20ML) VIAL. IV ONE; +SULF1TAB24 PO; +TRANEXAMIC ACID 1,000 MG in IV NS 50ML -- 1ST BAG INJ ONE; +TRANEXAMIC ACID 1,000 MG in IV NS 50ML -- 2ND BAG INJ ONE; +TV=100ml MORPHINE 5 MG, KETOROLAC 30 MG, ROPIVacaine 0.5% PF 60 ML, EPINEPH... INT ART ONE; +fentaNYL PF VIAL 100 MCG/2 ML VIAL IVP PRN; +traMADol 50 MG TABLET PO ONE
[2021-06-30 07:41] VITALS: BP 152/70
--- NOTE | 2021-06-30 10:15 | PDOC4 ---
OPERATIVE NOTE Date: Date: Jun 30, 2021 Pre-Op Diagnosis: Infected olecranon bursa right elbow Post-Op Diagnosis: Same Procedure Performed: I&D right elbow olecranon bursa Surgeon: Hattie Anesthesia Type: General Blood Loss: 20 cc Specimans Obtained: None Findings: See dictation Complications: None DILLON LUTZ Jr., DO Jun 30, 2021 10:15
--- NOTE | 2021-06-30 10:21 | DISCH ---
DISCHARGE INSTRUCTIONS Condition on Discharge Condition on Discharge: Stable Activity After Discharge Activity Instructions for Disc: Activity as tolerated, Avoid exertion Bathing Instructions: No Tub Bath until see Lifting Instructions after Dis: Do not lift >10 pounds Driving Instructions after Dis: Do not drive today, No driving for 2 weeks Weight Bearing Status after Di: Full weight bearing Diet after Discharge Diet after Discharge: Cardiac Diet Texture: Regular Liquid Texture: Thin Liquid Wound Incision Care Wound/Incision Care: Ice to area for comfort, Change dressing, Do not change dressing, May get incision wet Checks after Discharge Checks after discharge: Check blood press - daily Follow-Up Follow up with: 2 to 3 days Treatment/Equipment after DC Adaptive Equipment Issued: None DILLON LUTZ Jr. DO Jun 30, 2021 10:21
--- NOTE | 2021-06-30 10:27 | OP ---
DATE OF SURGERY: 06/30/2021 PREOPERATIVE DIAGNOSIS: Infected right olecranon bursa. POSTOPERATIVE DIAGNOSIS: Infected right olecranon bursa. PROCEDURE: I and D right olecranon bursa. SURGEON: Javy Kuhn Jr, DO ANESTHESIA: General. COMPLICATIONS: None. ESTIMATED BLOOD LOSS: 20 mL DESCRIPTION OF PROCEDURE: The patient was taken to the operative suite, given a general anesthetic. Right upper extremity was then prepped and draped in a sterile fashion. Incision was made directly over the area of the olecranon bursa. Immediately, there was significant amount of fluid from this. Cultures were immediately taken at this point. This was then debrided, some of the bursal tissue was removed and this was then thoroughly irrigated. No other abnormalities were noted; therefore, this was very loosely closed with 3 sutures only and then this was packed using sterile dressing. This was with iodoform gauze. After the sterile dressing was applied, the patient was then taken from the operative bed to the postoperative bed, taken to the PACU in stable condition. ZOILA DR: Pasquale TID: [id number]
--- NOTE | 2021-06-30 10:46 | HP ---
DATE OF SERVICE: 06/30/2021 ADMIT DATE: 06/30/2021 HISTORY OF PRESENT ILLNESS: He is here today on 06/30/2021, anticipating a right total hip replacement; however, over the weekend, he developed a significant erythema, swelling and pain in his right elbow. Obviously, we cannot proceed with a total hip arthroplasty with the cellulitis and most likely infected olecranon bursa on his right elbow; however, due to the fact that this is an acute onset of an active infection when he already has an infection in the left lower leg, I have talked with him about the fact that most likely we will not ever proceed with a total hip arthroplasty in the future, especially since this came out of nowhere as far as his elbow bursa; however, since he is n.p.o., I have talked with him about treatments, which is usually urgent irrigation, debridement and opening of this area since he is already n.p.o., he wishes to proceed with this I and D of the right elbow. He is well aware of the risks, complications as well as benefits and expectations of surgery, postoperative protocol and followup. His constitutional symptoms and review of systems are remarkable for that right hip pain as well as this right elbow, otherwise unremarkable. MEDICAL HISTORY: Remarkable for hypertension, hyperlipidemia, MS and right hip pain, severe. PAST SURGICAL HISTORY: Vein surgery on this closed type, balloon placement for cardiac event in 2020, cardiac stents placed in 2015. FAMILY HISTORY: Diabetes. SOCIAL HISTORY: The patient is a current smoker, smokes 11-20 cigarettes per day. Only drinks wine on social occasions. MEDICATIONS: Numerous and listed on the previous H and P with Ellipta, citalopram as well as metoprolol and lisinopril. MEDICATION ALLERGIES: NONE. PHYSICAL EXAMINATION: A 72 inches tall, 198 pounds. He has what appears to be a cellulitic right elbow. There is no pain with range of motion of the right elbow itself, but again a lot of fluid within the olecranon bursa, which is painful and erythematous at this point. His exam of the right hip again is very painful with internal and external rotation, abduction and is limited in all planes secondary to the pain in the hip. Distal neurovascular status is fully intact to the right upper extremity and right lower extremity. IMPRESSION: 1. Chronic degenerative joint disease, right hip. 2. Acute septic bursitis, right elbow. PLAN: At this time, thankfully, he is already n.p.o. This is an urgent case in any manner, but today he will be canceled as far as his hip replacement is concerned and proceed with an irrigation and debridement and thorough cleaning of the olecranon bursa on the right elbow. He is well aware of the risks, complications as well as benefits and expectations of surgery, postoperative protocol and followup. We will get this set up as soon as possible. LACY DR: Pasquale TID: [id number]
[2021-06-30 12:50] VITALS: BP 115/66
== END | disposition home or self-care (01) ==
LOC: SURG 06:26
PROVIDERS: ATTEND Orthopaedic Surgery
DX: M70.21 Olecranon bursitis, right elbow (principal); I10 Essential (primary) hypertension; I25.2 Old myocardial infarction; I25.10 Atherosclerotic heart disease of native coronary artery without angina pectoris; J44.9 Chronic obstructive pulmonary disease, unspecified; E78.00 Pure hypercholesterolemia, unspecified; F41.9 Anxiety disorder, unspecified; F32.9 Major depressive disorder, single episode, unspecified; M19.90 Unspecified osteoarthritis, unspecified site; F17.210 Nicotine dependence, cigarettes, uncomplicated; Z79.82 Long term (current) use of aspirin; Z79.899 Other long term (current) drug therapy; Z98.890 Other specified postprocedural states; Z72.89 Other problems related to lifestyle; Z91.041 Radiographic dye allergy status; Z88.8 Allergy status to other drugs, medicaments and biological substances; Z82.49 Family history of ischemic heart disease and other diseases of the circulatory system
CPT/HCPCS: 23931; 87071; 87075; 94640; A4565; A4930; A6449; J0171; J0690; J1100; J1885; J2270; J2405; J2704; J2795; J3490

== ENCOUNTER → 2021-08-12 | Day surgery (SDC) | payer MEDICARE, OTHER ==
[~2021-08-12] VITALS: Ht 190.5 cm; Wt 90.9 kg
[~2021-08-12] MED LIST changes: +ACET325T9 PO; -ACETAMINOPHEN 500 MG TABLET PO PRN; +BUPIVACAINE-EPI 0.5% 30 ML VIAL KIT. ONE; +DEXAMETHASONE SOD PHOS 20 MG/5 ML VIAL. ONE; -DEXAMETHASONE SOD PHOS 4 MG/ML VIAL ONE; -GABAPENTIN 300 MG CAPSULE. PO PRN; +GLYCOPYRROLATE 1 MG/5 ML VIAL. ONE; +HYDROmorphone 2 MG/ML INJ. IVP PRN; -HYDROmorphone 2 MG/ML VIAL IVP PRN; +IBUP-1027 PO; -IPRATRPIUM/ALBUTEROL 0.5/2.5MG 3 ML NEBU. NEB ONE; +KETAMINE HCL IN NACL, ISO-OSM 50 MG/5 ML SYRINGE ONE; +KETOROLAC 30 MG/ML VIAL. ONE; -LIDOCAINE 1% PF 5 ML VIAL. ONE; +LIDOCAINE 2% PF 5 ML VIAL. ONE; -MELOXICAM 7.5 MG TABLET PO PRN; +MINERAL OIL for SURGERY 10 ML VIAL. MC ONE; -TRANEXAMIC ACID 1,000 MG in IV NS 50ML -- 1ST BAG INJ ONE; -TRANEXAMIC ACID 1,000 MG in IV NS 50ML -- 2ND BAG INJ ONE; -TV=100ml MORPHINE 5 MG, KETOROLAC 30 MG, ROPIVacaine 0.5% PF 60 ML, EPINEPH... INT ART ONE; +ePHEDrine PF IN SALINE 50 MG/10 ML SYRINGE. IV ONE; +fentaNYL PF VIAL 100 MCG/2 ML VIAL ONE; -traMADol 50 MG TABLET PO ONE
[2021-08-12 12:04] VITALS: BP 152/72
--- NOTE | 2021-08-12 13:56 | PDOC ---
SURGICAL PROGRESS NOTE DATE: 08/12/21 TIME: 13:54 Subjective Pre-Op Note 70 yo M with non healing ulcer LLE anterior leg. TO OR for STSG. R/R/B/A d/w pt. Risks, including, but not limited to: bleeding, infection, damage to surrounding structures, risk of anesthesia, risk of graft not taking. He appears to understand, his questions are answered and he elects to proceed. Office note H&P reviewed and unchanged. Vital Signs Vital Signs Date Time Temp Pulse Resp B/P (MAP) Pulse Ox O2 Delivery O2 Flow Rate FiO2 08/12/21 12:04 98.0 69 20 98 98.0 08/12/21 11:56 152/72 Room Air Justicifation of Admission Dx: Justifications for Admission: Justification of Admission Dx: N/A TISH DYER MD Aug 12, 2021 13:56
--- NOTE | 2021-08-12 15:05 | PDOC4 ---
OPERATIVE NOTE Date: Date: Aug 12, 2021 Pre-Op Diagnosis: Non healing LLE ulcer Post-Op Diagnosis: same Procedure Performed: Split thickness skin graft from right anterior thigh to LLE ulcer Surgeon: Jose Dyer Anesthesia Type: monitor anesthesia and local Blood Loss: 5 Specimans Obtained: none Findings: 2 cm ulcer left anterior leg, clean, granulation tissue Complications: none Operative Note: After obtaining informed consent, patient was taken to OR, induced under MAC and prepped in the usual fashion bilateral lower extremities. Dermotome used to harves graft from right anterior thigh at depth of 0.3 mm. This was meshed 2:1. The recipient site was gently debrided. Graft was then placed here and secured with 4 0 monocryl. Silver dressing placed over donor site. Xeroform gauze and compression wrap placed on recipient site. Patient tolerated procedure well and sent to PACU in stable condition. All counts correct. TISH DYER MD Aug 12, 2021 15:05
[2021-08-12 15:25] VITALS: BP 125/72
== END | disposition home or self-care (01) ==
LOC: SURG 11:23
PROVIDERS: ATTEND Surgery
DX: T14.8XXA Other injury of unspecified body region, initial encounter (principal); L97.929 Non-pressure chronic ulcer of unspecified part of left lower leg with unspecified severity; I25.10 Atherosclerotic heart disease of native coronary artery without angina pectoris; I10 Essential (primary) hypertension; E78.00 Pure hypercholesterolemia, unspecified; J44.9 Chronic obstructive pulmonary disease, unspecified; M19.90 Unspecified osteoarthritis, unspecified site; F41.9 Anxiety disorder, unspecified; F32.9 Major depressive disorder, single episode, unspecified; F17.210 Nicotine dependence, cigarettes, uncomplicated; Z79.82 Long term (current) use of aspirin; Z79.899 Other long term (current) drug therapy; Z98.890 Other specified postprocedural states; X58.XXXA Exposure to other specified factors, initial encounter; Y93.89 Activity, other specified; Y92.89 Other specified places as the place of occurrence of the external cause; Y99.8 Other external cause status
CPT/HCPCS: 15100; A4930; A6223; A6236; A6237; A6253; A6258; A6402; A6449; J0690; J1100; J1885; J2405; J2704; J3010; J3490; A6213

== ENCOUNTER → 2021-11-12 | Outpatient (CLI) | payer MEDICARE, OTHER ==
[2021-08-12 15:25] VITALS: BP 125/72
[~2021-11-12] MED LIST changes: -BUPIVACAINE-EPI 0.5% 30 ML VIAL KIT. ONE; -DEXAMETHASONE SOD PHOS 20 MG/5 ML VIAL. ONE; -GLYCOPYRROLATE 1 MG/5 ML VIAL. ONE; -HYDROmorphone 2 MG/ML INJ. IVP PRN; -IV RINGERS,LACTATED 1000ML 1,000 ML IV SCH; -KETAMINE HCL IN NACL, ISO-OSM 50 MG/5 ML SYRINGE ONE; -KETOROLAC 30 MG/ML VIAL. ONE; -LIDOCAINE 2% PF 5 ML VIAL. ONE; -MINERAL OIL for SURGERY 10 ML VIAL. MC ONE; -MORPHINE SULFATE 2 MG/ML INJ. IVP PRN; -ONDANSETRON PF 4 MG/2 ML VIAL. ONE; -PROCHLORPERAZINE 10 MG/2 ML VIAL. IVP PRN; -PROPOFOL 10 MG/ML (20ML) VIAL. IV ONE; -ePHEDrine PF IN SALINE 50 MG/10 ML SYRINGE. IV ONE; -fentaNYL PF VIAL 100 MCG/2 ML VIAL IVP PRN; -fentaNYL PF VIAL 100 MCG/2 ML VIAL ONE
--- NOTE | 2021-11-13 08:15 | RAD ---
Left lower extremity arterial duplex Doppler examination spectral analysis and ankle-brachial indices HISTORY: Nonhealing ulcer left ankle Sonographic examination of the left lower extremity was performed multiple static images were obtaine d. In addition color Doppler is applied as well as arterial waveform spectral analysis FINDINGS: There is normal biphasic waveform morphology throughout the left lower extremity. There is dilatation of the metcalf of the arteries and some soft plaque formation. There is mildly high velocity in the mi d SFA with a peak systolic velocity of 138 cm/s. IMPRESSION: Atherosclerotic disease with no hemodynamically significant stenosis. End of impression Ankle brachial indices: The ankle brachial indices were calculated and there is an ankle-brachial index of 1.2. IMPRESSION: Normal ankle brachial index. Electronically signed by: Andrew Vela III, MD (11/13/2021 8:13 AM) BANG
== END ==
LOC: US 12:56
PROVIDERS: ATTEND Anesthesiology Hospice and Palliative Medicine
DX: I70.202 Unspecified atherosclerosis of native arteries of extremities, left leg (principal); L97.329 Non-pressure chronic ulcer of left ankle with unspecified severity
CPT/HCPCS: 93922; 93926